=== PATIENT | female | born 1945 | race Caucasian/White ===

== ENCOUNTER 2018-06-26 19:27 | Emergency (ER) | payer BC ==
[~2018-06-26] VITALS: Ht 170.2 cm; Wt 61.4 kg
[2018-06-26 19:37] VITALS: BP 136/72
== END 2018-06-26 21:30 | disposition home or self-care (01) ==
LOC: ER 19:29
DX: M25.511 Pain in right shoulder (principal); W18.2XXA Fall in (into) shower or empty bathtub, initial encounter; Y93.89 Activity, other specified; Y92.89 Other specified places as the place of occurrence of the external cause; Y99.8 Other external cause status
CPT/HCPCS: 73030; 99283